=== PATIENT | female | born 1975 | race Caucasian/White ===

== ENCOUNTER 2017-06-30 12:20 | Emergency (ER) | payer BC ==
[~2017-06-30] VITALS: Ht 177.8 cm; Wt 78.9 kg
[~2017-06-30 12:20] MED LIST: NORE5TAB5 PO; SPIR1TAB3 PO; THYR48.7 PO
--- OUTSIDE RECORDS SUMMARY | 2017-06-30 12:25 | XMS REPORT | Continuity of Care Document ---
Author Author [facility] Organization [facility] Address Unknown Phone Unavailable Allergies Active Description Code Type Severity Reaction Onset Reported/Identified Relationship to Patient Clinical Status Yes Penicillins [id number] Drug Allergy Mild rash as child 12/24/2014 Medications Problems Date Dx Coded Attending Type Code Diagnosis Diagnosed By 10/01/2014 Ot 625.3 10/01/2014 Ot 789.00 10/01/2014 Ot 241.0 10/01/2014 Ot 794.5 10/05/2014 Ot 625.3 10/05/2014 Ot 789.00 10/05/2014 Ot 241.0 10/05/2014 Ot 794.5 12/24/2014 BILL VOSS MD Ot 211.3 12/24/2014 BILL VOSS MD Ot V18.51 12/24/2014 BILL VOSS MD Ot V76.51 01/11/2015 BILL VOSS MD Ot V72.84 Procedures Results Encounters ACCT No. Visit Date/Time Discharge Status Pt. Type Provider Facility Loc./Unit Complaint [id number] 12/24/2014 06:53:00 2014 09:40:00 DIS Outpatient BILL VOSS MD [facility] [id number] 12/23/2014 05:50:00 2014 23:59:59 CLS Outpatient BILL VOSS MD [facility] PREOP [id number] 01/02/2013 10:49:00 Document Registration [id number] 09/01/2009 08:52:00 Document Registration
[2017-06-30] MEDS ORDERED: NS IV 1000 ML 1,000 ML IV ONE (13:19)
[2017-06-30] MEDS ORDERED: HYDROcodone/APAP 5 MG/325 MG (LORTAB) TAB PO STA (13:19)
--- NOTE | 2017-06-30 13:25 | ED GU-Female ---
General Chief Complaint: Abdominal/GI Problems Stated Complaint: ABD PAIN Nursing Triage Note: PT C/O RLQ PAIN. PT HAD HYSTERECTOMY X9 WEEKS AGO, HAS BEEN HAVING PAIN FOR SEVERAL WEEKS, IS SCHEDULED FOR A CT TOMORROW. RECENTLY HAD A ULTRASOUND TO RULE OUT OVARIAN PAIN. DENIES N/V/D Nursing Sepsis Screen: No Definite Risk Source: patient, spouse ((Dr. Ambrocio Ricketts)) Exam Limitations: no limitations History of Present Illness Time seen by provider: 13:25 Initial Comments 41 yo female patient presents to the ED with c/o RLQ pain which has progressively gotten worse over the last several weeks. Patient reports having a vaginal hysterectomy left salpingo-oophorectomy [address] Luis in [place], [place]. Patient reports having labs on Saturday including a CBC, CMP, and UA which were negative. Also reports having an outpatient transvaginal ultrasound as an outpatient to rule out ovarian torsion which only showed a 1.5 cm rt ovarian cyst. Denies frequency, hematuria, dysuria, n/v, or melena. Denies vaginal spotting or dsch. Timing/Duration: getting worse Severity/Quality: aching, sharp, other (moderate to severe) Location: RLQ Radiation: back (occasional radiation to the right low back), right flank ( occasional radiation to the rt flank/hip bone.), other (right adnexa) Activities at Onset: none Sexual [place] History: less than 2 months ago, single partner Modifying Factors: Worsens With Other (worse with sitting and riding in a car ( jarring).) Allergies and Home Medications Allergies Coded Allergies: Penicillins (Unverified Allergy, Mild, rash as child, 12/24/14) Home Medications Hydrocodone/Acetaminophen 1 Each Tablet, 1 EACH PO Q4H PRN for PAIN, #20 Ref 0 Prescribed by: ZION ROBERSON on 06/30/17 161 Norethindrone Acetate 5 Mg Tablet, 70 MG PO UD, (Reported) Polyethylene Glycol 3350 119 Gm Powder, 17 GM PO HS PRN for CONSTIPATION-1ST LINE, #1 Ref 0 Prescribed by: ZION ROBERSON on 06/30/17 161 Spironolact/Hydrochlorothiazid 1 Each Tablet, 1 EACH PO UD, (Reported) Thyroid,Pork 48.75 Mg Tablet, 48.75 MG PO DAILY, (Reported) Constitutional: No chills, No fever, No malaise Respiratory: No cough, No dyspnea on exertion, No short of breath Cardiovascular: No chest pain, No edema, No syncope Gastrointestinal: abdominal pain (RLQ), No constipation, diarrhea, No loss of appetite, No melena, No nausea, No vomiting Genitourinary: see HPI, denies burning, denies discharge, denies dysuria, denies frequency, flank pain (occasional radiation to the rt flank/hip bone.), denies hematuria, pain (rt adnexa) Musculoskeletal: back pain (occasional radiation to the right low back) Skin: no symptoms reported Psychiatric/Neurological: No Symptoms Reported All Other Systemes Reviewed Negative Unless Noted: Yes (Negative excepted noted.) Past Kyqxoox-Lhhqdb-Fphabr Hx Patient Social History Alcohol Use: Denies Use Recreational Drug Use: No Smoking Status: Never a Smoker Recent Foreign Travel: No Contact w/Someone Who Travel: No Recent Infectious Disease Expo: No Recent Hopitalizations: No Physical Abuse: No Sexual Abuse: No Surgeries History of Surgeries: Yes (breast augmentation) Surgeries: Hysterectomy (partial vaginal hyst with left salpingo-oophorectomy) , Orthopedic Respiratory History of Respiratory Disorde: No Cardiovascular History of Cardiac Disorders: No Neurological History of Neurological Disord: No 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 Genitourinary History of Genitourinary Disor: No Gastrointestinal History of Gastrointestinal Di: No Musculoskeletal History of Musculoskeletal Dis: No Endocrine History of Endocrine Disorders: Yes HEENT History of HEENT Disorders: No Cancer History of Cancer: No Psychosocial Suicide Risk Score: 0 Integumentary History of Skin or Integumenta: No Reviewed Nursing Assessment Reviewed/Agree w Nursing PMH: Yes Family Medical History Significant Family History: No Pertinent Family Hx Physical Exam Vital Signs Vital Sign - Last 12Hours 06/30/17 12:46 Temp 98.9 Pulse 92 Resp 16 B/P (MAP) 156/103 Pulse Ox 99 O2 Delivery Room Air Capillary Refill : Less Than 3 Seconds General Appearance: WD/WN, no apparent distress HEENT: PERRL/EOMI, pharynx normal Neck: supple, normal inspection Cardiovascular: normal peripheral pulses, regular rate, rhythm, no edema, no murmur Respiratory: lungs clear, normal breath sounds, no respiratory distress, no accessory muscle use Gastrointestinal: normal bowel sounds, soft, no organomegaly, No distended, guarding (right mid abdomen (see images)), No rebound, tenderness (right adnexa , right midabdomen), No mass Back: normal inspection, no CVA tenderness Extremities: no pedal edema, normal capillary refill Neurologic/Psychiatric: alert, normal mood/affect, oriented x 3 Skin: normal color, warm/dry Progress/Results/Core Measures Results/Orders Lab Results Laboratory Tests Test 06/30/17 13:44 06/30/17 14:00 Range/Units Urine Color YELLOW Urine Clarity CLEAR Urine pH 6.5 5-9 Urine Specific [place] 1.010 L 1.016-1.022 Urine Protein NEGATIVE NEGATIVE Urine Glucose (UA) NEGATIVE NEGATIVE Urine Ketones NEGATIVE NEGATIVE Urine Nitrite NEGATIVE NEGATIVE Urine Bilirubin NEGATIVE NEGATIVE Urine Urobilinogen NORMAL NORMAL MG/DL Urine Leukocyte Esterase NEGATIVE NEGATIVE Urine RBC (Auto) NEGATIVE NEGATIVE Urine RBC NONE /HPF Urine WBC NONE /HPF Urine Squamous Epithelial Cells 5-10 /HPF Urine Crystals NONE /LPF Urine Bacteria FEW H /HPF Urine Casts NONE /LPF Urine Mucus NEGATIVE /LPF Urine Culture Indicated NO White Blood Count 8.4 4.3-11.0 10^3/uL Red Blood Count 5.06 4.35-5.85 10^6/uL Hemoglobin 14.6 11.5-16.0 G/DL Hematocrit 44 35-52 % Mean Corpuscular Volume 86 80-99 FL Mean Corpuscular Hemoglobin 29 25-34 PG Mean Corpuscular Hemoglobin Concent 34 32-36 G/DL Red Cell Distribution Width 12.8 10.0-14.5 % Platelet Count 248 130-400 10^3/uL Mean Platelet Volume 10.5 H 7.4-10.4 FL Neutrophils (%) (Auto) 73 42-75 % Lymphocytes (%) (Auto) 21 12-44 % Monocytes (%) (Auto) 5 0-12 % Eosinophils (%) (Auto) 1 0-10 % Basophils (%) (Auto) 0 0-10 % Neutrophils # (Auto) 6.1 1.8-7.8 X 10^3 Lymphocytes # (Auto) 1.7 1.0-4.0 X 10^3 Monocytes # (Auto) 0.4 0.0-1.0 X 10^3 Eosinophils # (Auto) 0.1 0.0-0.3 10^3/uL Basophils # (Auto) 0.0 0.0-0.1 10^3/uL Sodium Level 142 135-145 MMOL/L Potassium Level 4.1 3.6-5.0 MMOL/L Chloride Level 106 98-107 MMOL/L Carbon Dioxide Level 23 21-32 MMOL/L Anion Gap 13 5-14 MMOL/L Blood Urea Nitrogen 14 7-18 MG/DL Creatinine 0.95 0.60-1.30 MG/DL Estimat Glomerular Filtration Rate > 60 BUN/Creatinine Ratio 15 Glucose Level 100 70-105 MG/DL Calcium Level 9.4 8.5-10.1 MG/DL Total Bilirubin 0.3 0.1-1.0 MG/DL Aspartate Amino Transf (AST/SGOT) 14 5-34 U/L Alanine Aminotransferase (ALT/SGPT) 27 0-55 U/L Alkaline Phosphatase 62 40-136 U/L C-Reactive Protein High Sensitivity 0.17 0.00-0.50 MG/DL Total Protein 7.2 6.4-8.2 GM/DL Albumin 4.3 3.2-4.5 GM/DL Lipase 11 8-78 U/L My Orders Orders - ZION ROBERSON Saline Lock/Iv-Start (06/30/17 13:19) Cbc With Automated Diff (06/30/17 13:19) Comprehensive Metabolic Panel (06/30/17 13:19) Hs C Reactive Protein (06/30/17 13:19) Lipase (06/30/17 13:19) Ua Culture If Indicated (06/30/17 13:19) Ns Iv 1000 Ml (Sodium Chloride 0.9%) (06/30/17 13:19) Ondansetron Injection (Zofran Injectio (06/30/17 13:30) Hydrocodone/Apap 5/325 Tablet (Lortab 5 (06/30/17 13:19) Ct Abd/Pelv W (Appendicitis) (06/30/17 13:23) Iohexol Injection (Omnipaque 350 Mg/Ml 1 (06/30/17 14:00) Ns (Ivpb) (Sodium Chloride 0.9% Ivpb Bag (06/30/17 14:00) Pharmacy Communication (Pharmacy Communi (06/30/17 13:48) Sodium Chloride Flush (Catheter Flush Sy (06/30/17 14:00) Diatrizoate Meglum/Sodium 37% (Gastrogra (06/30/17 14:00) Medications Given in ED Current Medications Medications Dose Ordered Sig/Frank Route Start Time Stop Time Status Last Admin Dose Admin Diatrizoate Meglum/ Diatrizoate Sod 120 ml ONCE ONCE PO 06/30/17 14:00 06/30/17 14:01 DC 06/30/17 14:01 10 ML Iohexol 100 ml ONCE ONCE IV 06/30/17 14:00 06/30/17 14:01 DC 06/30/17 14:50 100 ML Ondansetron HCl 4 mg ONCE ONCE IVP 06/30/17 13:30 06/30/17 13:31 DC 06/30/17 14:06 4 MG Sodium Chloride 100 ml ONCE ONCE IV 06/30/17 14:00 06/30/17 14:01 DC 06/30/17 14:50 80 ML Sodium Chloride 1,000 ml @ 0 mls/hr Q0M ONCE IV 06/30/17 13:19 06/30/17 13:23 DC 06/30/17 14:06 0 MLS/HR Vital Signs/I&O Vital Sign - Last 12Hours 06/30/17 06/30/17 12:46 16:25 Temp 98.9 98.0 Pulse 92 85 Resp 16 16 B/P (MAP) 156/103 Pulse Ox 99 99 O2 Delivery Room Air Room Air Intake and Output 07/01/17 00:00 Intake Total 1000 ml Balance 1000 ml Blood Pressure Mean: 120 Diagnostic Imaging Diagonstic Imaging: CT Plain Films/CT/US/NM/MRI: abdomen, pelvis Comments The appendix was not particularly well visualized but the appendix does not seem to be abnormally thickened. There is no distortion of the periappendiceal fat to suggest acute appendicitis. There is a 1.5 cm cyst associated with the right ovary. There is also a very small amount of free fluid in the pelvis. The free fluid is nonspecific but could be related to the recent rupture of a small cyst or of a mild inflammatory process. The left ovary was not identified. The uterus is surgically absent. The urinary bladder is grossly unremarkable. The liver, spleen, pancreas, adrenals, kidneys, gallbladder, aorta and inferior vena cava show no sign of an acute abnormality. The stomach is partially filled with fluid and difficult to assess. The lung bases are clear. The bone windows show no evidence for a fracture or for a destructive lesion. IMPRESSION: 1. There is no evidence for acute appendicitis. 2. There is a small cyst associated with the right ovary. If further study is desired, then ultrasound would be recommended. 3. There is no acute abnormality of the abdomen or pelvis otherwise. 4. These results were discussed with CORTEZ Omer. Dictated by : Dictated on workstation # [id number] Reviewed: Reviewed by Me (radiology report reviewed by me and discussed with Dr. Low) Departure Communication (Admissions) Progress Notes All laboratory findings and diagnostic study findings were discussed with the patient. Patient reports pain is improved with the hydrocodone. plan for dsch to home with f/u as an outpatient with Dr. Luis. All return precautions were discussed with the patient as described in the discharge instructions of this report. Patient voices understanding and agrees with the treatment plan. Impression Impression: Primary Impression: Right lower quadrant abdominal pain Additional Impression: Ovarian cyst Qualified Codes: N83.201 - Unspecified ovarian cyst, right side Disposition: HOME, SELF-CARE Condition: Improved Departure-Patient Inst. Decision time for Depature: 16:15 Referrals: GASTON ANDRE MD (PCP) Primary Care Physician TRENA RICKETTS MD (Family) Primary Care Physician Patient Instructions: Ovarian Cyst (DC), Acute Abdomen (Belly Pain), Adult (DC) Add. Discharge Instructions: All discharge instructions reviewed with patient and/or family. Voiced understanding. Medications as instructed. Continue usual home medications. Drink plenty of fluids. Stool softener [id number] 2-3 times daily as needed for constipation. Magnesium citrate for severe constipation. Follow-up with Dr. Luis as an outpatient for recheck, call Saturday for appointment time. Return immediately to the emergency department for worsened pain, fever, vomiting, decreased urination, inability to urinate, vaginal bleeding, vaginal discharge, rectal bleeding, abdominal swelling, or any other concerns. Scripts Polyethylene Glycol 3350 (Miralax) 119 Gm Powder 17 GM PO HS Y for CONSTIPATION-1ST LINE, #1 EA 0 Refills Prov: ZION ROBERSON 06/30/17 Hydrocodone/Acetaminophen (Hydrocodon -Acetaminophen 5-325) 1 Each Tablet 1 EACH PO Q4H Y for PAIN, #20 TAB 0 Refills Prov: ZION ROBERSON 06/30/17 ZION ROBERSON Jun 30, 2017 13:25
[2017-06-30] MEDS ORDERED: ONDANSETRON 4 MG/2 ML (SDV) Z0FRAN IVP ONE (13:30)
[2017-06-30] MEDS ORDERED: CATHETER FLUSH 10 ML SYR IV PRN (14:00)
[2017-06-30] MEDS ORDERED: DIATRIZOATE MEGLUM/SODIUM 37% 120 ML (GASTROGRAFIN) PO ONE (14:00)
[2017-06-30] MEDS ORDERED: IOHEXOL 350 MG/ML 100 ML (OMNIPAQUE 350) VIAL IV ONE (14:00)
[2017-06-30] MEDS ORDERED: NS 100 ML (IVPB) BAG IV ONE (14:00)
[2017-06-30 14:16] LABS: BILIRUBIN,URINE NEGATIVE (NEGATIVE); KETONES,URINE NEGATIVE (NEGATIVE); LEUKOCYTE ESTERASE ,URINE NEGATIVE (NEGATIVE); NITRITE,URINE NEGATIVE (NEGATIVE); PH,URINE 6.5 (5-9); PROTEIN,URINE NEGATIVE (NEGATIVE); UROBILINOGEN,URINE NORMAL (NORMAL)
[2017-06-30 14:18] LABS: BASOPHILS % (AUTO) 0 % (0-10); EOSINOPHILS # (AUTO) 0.1 10^3/uL (0.0-0.3); EOSINOPHILS % (AUTO) 1 % (0-10); LYMPHOCYTES # (AUTO) 1.7 X 10^3 (1.0-4.0); LYMPHOCYTES % (AUTO) 21 % (12-44); MEAN CORPUSCULAR HEMOGLOBIN 29 PG (25-34); MEAN CORPUSCULAR HGB CONC 34 G/DL (32-36); MEAN CORPUSCULAR VOLUME 86 FL (80-99); MEAN PLATELET VOLUME 10.5 FL (7.4-10.4); MONOCYTES # (AUTO) 0.4 X 10^3 (0.0-1.0); MONOCYTES % (AUTO) 5 % (0-12); NEUTROPHILS # (AUTO) 6.1 X 10^3 (1.8-7.8); NEUTROPHILS % (AUTO) 73 % (42-75); PLATELET COUNT 248 10^3/uL (130-400); RED BLOOD COUNT 5.06 10^6/uL (4.35-5.85); RED CELL DISTRIBUTION WIDTH 12.8 % (10.0-14.5); WHITE BLOOD COUNT 8.4 10^3/uL (4.3-11.0)
[2017-06-30 14:36] LABS: ALANINE AMINOTRANSFERASE 27 U/L (0-55); ALBUMIN 4.3 GM/DL (3.2-4.5); ANION GAP 13 MMOL/L (5-14); ASPARTATE AMINO TRANSFERASE 14 U/L (5-34); BILIRUBIN,TOTAL 0.3 MG/DL (0.1-1.0); BLOOD UREA NITROGEN 14 MG/DL (7-18); BUN/CREATININE RATIO 15; CALCIUM 9.4 MG/DL (8.5-10.1); CARBON DIOXIDE 23 MMOL/L (21-32); CHLORIDE 106 MMOL/L (98-107); CREATININE SERUM 0.95 MG/DL (0.60-1.30); GFR ESTIMATED > 60; GLUCOSE 100 MG/DL (70-105); LIPASE 11 U/L (8-78); POTASSIUM 4.1 MMOL/L (3.6-5.0); SODIUM 142 MMOL/L (135-145); TOTAL PROTEIN 7.2 GM/DL (6.4-8.2); hs C REACTIVE PROTEIN 0.17 MG/DL (0.00-0.50)
--- NOTE | 2017-06-30 15:16 | Diagnostic Imaging Report ---
PROCEDURE: CT abdomen and pelvis with contrast, rule out appendicitis. TECHNIQUE: Multiple contiguous axial images were obtained through the abdomen and pelvis after the administration of intravenous contrast. INDICATION: Right lower quadrant pain for two weeks. COMPARISON: There are no previous CT examinations available for comparison. The appendix was not particularly well visualized but the appendix does not seem to be abnormally thickened. There is no distortion of the periappendiceal fat to suggest acute appendicitis. There is a 1.5 cm cyst associated with the right ovary. There is also a very small amount of free fluid in the pelvis. The free fluid is nonspecific but could be related to the recent rupture of a small cyst or of a mild inflammatory process. The left ovary was not identified. The uterus is surgically absent. The urinary bladder is grossly unremarkable. The liver, spleen, pancreas, adrenals, kidneys, gallbladder, aorta and inferior vena cava show no sign of an acute abnormality. The stomach is partially filled with fluid and difficult to assess. The lung bases are clear. The bone windows show no evidence for a fracture or for a destructive lesion. IMPRESSION: 1. There is no evidence for acute appendicitis. 2. There is a small cyst associated with the right ovary. If further study is desired, then ultrasound would be recommended. 3. There is no acute abnormality of the abdomen or pelvis otherwise. 4. These results were discussed with CORTEZ Omer. Dictated by: Dictated on workstation # [id number]
[2017-06-30] MEDS ORDERED: HYDR-3812 PO (16:16)
[2017-06-30] MEDS ORDERED: POLY119P5 PO (16:16)
[2017-06-30 16:25] VITALS: BP 145/95
== END 2017-06-30 16:25 | disposition home or self-care (01) ==
LOC: EDUNIT# 12:20 → ER 12:21
DX: N83.201 Unspecified ovarian cyst, right side (principal); Z90.710 Acquired absence of both cervix and uterus; Z90.721 Acquired absence of ovaries, unilateral
CPT/HCPCS: 36415; 74177; 80053; 81000; 83690; 85025; 86141; 99283